=== PATIENT | male | born 1970 | race Caucasian/White ===

== ENCOUNTER 2016-09-16 12:20 | Emergency (ER) | payer OTHER ==
--- NOTE | 2016-09-16 13:24 | DIAGNOSTIC IMAGING REPORT ---
PROCEDURE: XR SHOULDER 2 OR MORE VW-LEFT INDICATION: FALL TECHNIQUE: Three views. COMPARISON: None. FINDINGS: Anterior dislocation of the glenohumeral joint with inferior and medial displacement of the humeral head. No fracture. AC joint is normal. Soft tissues are unremarkable. IMPRESSION: 1. Left shoulder anterior dislocation
--- NOTE | 2016-09-16 15:46 | DIAGNOSTIC IMAGING REPORT ---
PROCEDURE: XR SHOULDER 1 VIEW - LEFT INDICATION: FALL TECHNIQUE: Single view left shoulder COMPARISON: Shoulder films 09/16/16 FINDINGS: Post reduction of the left shoulder, no fracture. IMPRESSION: 1. Post reduction left shoulder, no fracture.
--- NOTE | 2016-09-16 16:12 | ED CLINICAL REPORT ---
Clinical Report - Physicians/Mid Levels [facility] [address] [place] [address] 09/16/2016 12:24 Patient: CARLOS SHARP Time Seen: 12:39. Arrived- By private vehicle. Historian- patient. HISTORY OF PRESENT ILLNESS Chief Complaint: Injury to left shoulder. The injury happened just prior to arrival. Occurred at work. Fell off a ladder and landed on the ground. Patient is experiencing severe pain. No other injury. ( he reports a prior rotator cuff surgery on this left shoulder. Additionally he says that he has dislocated this shoulder twice in the past.). REVIEW OF SYSTEMS The patient has had new onset of pain-related weakness of the left upper arm (severe). No tingling, numbness, chills, fever or sweats. No calf pain, chest pain, cough, pedal edema or abdominal pain. No constipation, diarrhea, nausea, vomiting or urinary problems. All systems otherwise negative, except as recorded above. PAST HISTORY Problems: Dislocated Shoulder. Additional Surgeries: Shoulder Surgery. Medications: None. Allergies: Codeine. PCN. SOCIAL HISTORY Never smoker. History of drug use reports that his former heroin and methamphetamine abuser. He had been on Suboxone but stopped that. He does acknowledge that he continues to use marijuana regularly. Is a recovering addict. ADDITIONAL NOTES The nursing notes have been reviewed. PHYSICAL EXAM Vital Signs: 09/16/2016 12:33 BP: 136/82. HR: 78. RR: 18. O2 saturation: 100%. Temp: 98.1 F. Pain level now: 1010. Have been reviewed. Appearance: Alert. Head: Head atraumatic. Eyes: Pupils equal, round and reactive to light. ENT: Pharynx normal. Neck: Normal inspection. Neck supple. CVS: Normal heart rate and rhythm. Heart sounds normal. Respiratory: No respiratory distress. Breath sounds normal. Abdomen: No visible injury. Soft and nontender. Bowel sounds normal. No organomegaly. No mass. Back: ROM normal. Skin: Skin warm and dry. Normal skin color. Normal skin turgor. Extremities: Left shoulder: moderate deformity. Limited ROM due to pain. Neurovascular intact distally. (Surgical scar noted). Neuro, Vascular and Tendons: Sensation intact. Motor intact. Vascular status intact. Neuro: No motor deficit. No sensory deficit. LABS, X-RAYS, AND EKG Lt Shoulder X-ray: (TECHNIQUE: Three views. COMPARISON: None. FINDINGS: Anterior dislocation of the glenohumeral joint with inferior and medial displacement of the humeral head. No fracture. AC joint is normal. Soft tissues are unremarkable. IMPRESSION: 1. Left shoulder anterior dislocation). The X-rays were interpreted by the radiologist and contemporaneously by me. Post procedure films: (IMPRESSION:). Note - Tests: (Name: Carlos Sharp : 1970 MR#: [id number] Ordering Provider: SEBAS BASURTO Exam(s): CT UPPER EXT W/O CONT - LEFT Date of Exam: 09/16/2016 __ PROCEDURE: CT UPPER EXT W/O CONT - LEFT CLINICAL INDICATION: Left shoulder pain. Follow-up subluxation/reduction. TECHNIQUE: Thin-cut noncontrast axial images with sagittal oblique and coronal oblique reformations. COMPARISON: Comparison made radiographs of the left shoulder earlier today (09/16/2016) FINDINGS: There are moderate degenerative changes of the left glenohumeral joint with small peripheral osteophytes and possible peripheral loose bodies. There are mild degenerative change of the left acromioclavicular joint. There is an old healed fracture of the left proximal humeral shaft. There is a small 6 mm of pocket of subcutaneous emphysema on the left supraclavicular region. IMPRESSION: 1. Moderate degenerative changes of the left glenohumeral joint with possible associated of small loose bodies. 2. Mild degenerative changes of the left acromioclavicular joint. 3. Old healed fracture the left proximal humeral shaft. 4. No evidence of acute fracture. 5. There is a 6 mm isolated pocket of subcutaneous emphysema in the left supraclavicular region. Consider subcutaneous injection site.). PROGRESS AND PROCEDURES Course of Care: Initial evaluation by myself of the patient's left shoulder x-ray was puzzling. On the AP view it did appear that it could be a possible anterior dislocation however on the Y view the humerus appeared to be centered over the glenoid fossa. The radiologist however read this as an anterior dislocation. I made several attempts at reduction of the shoulder with seemingly no success. This was in spite of the use of Valium and a low dose of Dilaudid. I had suggested to the patient that we use conscious sedation however he adamantly refused that. I subsequently consulted Dr. Ballard, orthopedist. He saw the patient in the emergency room and felt that this previously injured shoulder may be subluxing inferiorly. He also suggested that we obtain a CT of the shoulder. he and I reviewed the CT together and he feels that there are fractures to the glenoid fossa some of them may be old and some from today's injury. He suggests that the patient should be paced placed in a sling, given a prescription for Harold and that he may follow up at the orthopedic clinic for further management. Consult obtained from orthopedics. Elio. Case discussed. Consultation performed in ED. Patient/family counseled. Old medical records reviewed. Disposition: Discharged. Condition: stable. CLINICAL IMPRESSION Closed glenoid fossa fracture of the left scapula. INSTRUCTIONS Wear simple sling until released. No driving or operating machinery while taking medication. Sedative medication was given during your visit. Warnings: COMPLICATIONS: Complications from this condition include: possible injury to a nerve, possible injury to a tendon and possible injury to a ligament. Future problems may include loss of function, pain, deformity and poor fracture healing. It is important to follow up with a physician for further evaluation and treatment. GENERAL WARNINGS: Return or contact your physician immediately if your condition worsens or changes unexpectedly, if not improving as expected, or if other problems arise. Prescription Medications: Harold 5 mg / 325 mg tablets: take 1 to 2 orally every 6 hours as needed for pain. Dispense fifteen (15). No refills. Substitution is permissible. Understanding of the discharge instructions verbalized by patient. Follow-up with: [facility], , [address], , [place], [id number] Follow up in two weeks. Call for an appointment. (Electronically signed by Sebas Basurto MD 09/17/2016 22:09)
--- NOTE | 2016-09-16 16:12 | ED NURSING NOTES ---
Clinical Report - Nurses [facility] [address] [place] [address] 09/16/2016 12:24 Patient: GENEVIEVE BUTTS TRIAGE Triage time 12:33. Acuity: LEVEL 3. Chief Complaint: FALL. 12:33 09/16/16. 12:09/16/16. Alert. No acute distress. SEPSIS SCREEN: Sepsis Screen. Negative (no infection suspected/documented). RON COMA SCORE: Ron Coma Scale: 15- eyes open spontaneously (4); best verbal response- oriented x 4 (5); best motor response- obeys commands (6). --12:37 Heath Patel R.N. 12:33 09/16/16. BP: 136/82. HR: 78. RR: 18. O2 saturation: 100% on room air. Temp: 98.1 F (oral). Pain level now: 04/21. --12:37 Heath Patel R.N. Weight: 83.9 kg stated. Height/Length: 71 inches Per Patient. BMI: 25.8. --12:33 Heath Patel R.N. Medications None. --12:35 Heath Patel R.N. Medication/allergy information source: the patient. --12:37 Heath Patel R.N. Allergies PCN. --12:35 Heath Patel R.N. Codeine. --12:35 Heath Patel R.N. History Arrived by private vehicle. Historian: patient. Accompanied by family. Primary physician (NONE). 12:33 09/16/16. This occurred just prior to arrival. No loss of consciousness. No headache. Treatment [employer]: None. Trauma activation: Pre-hospital notification of patient arrival was not received. PAST MEDICAL HX: Tetanus status: up-to-date. Immunizations: up-to-date. SOCIAL HX: Never smoker. History of heavy drug use: marijuana. (FORMER METH/HEROINE USE). No alcohol use. No infectious disease exposure. ABUSE ASSESSMENT: No report of abuse. FALL RISK ASSESSMENT: Fall risk assessment completed. No fall risk identified. NUTRITIONAL RISK ASSESSMENT: The nutritional risk assessment revealed no deficiencies. FUNCTIONAL ASSESSMENT: Functional assessment: no impairments noted. LEARNING NEEDS ASSESSMENT: The learning needs assessment revealed no barriers. SKIN INTEGRITY ASSESSMENT: Skin integrity risk assessment completed. No skin integrity risk identified. --12:37 Heath Patel R.N. ( Denies numbness left hand). --12:37 Heath Patel R.N. PROBLEMS: Dislocated Shoulder. --12:35 Heath Patel R.N. ADDITIONAL SURGERIES: Shoulder Surgery. --15:55 Heath Patel R.N. Assessment 12:33 09/16/16. --12:37 Heath Patel R.N. Interventions 12:33 09/16/16. 12:33 09/16/16. ID and allergy band on patient. To treatment room. --12:37 Heath Patel R.N. PHYSICAL ASSESSMENT 12:36 09/16/16. To room via wheelchair. GENERAL / NEURO / PSYCH: Alert. Oriented X 4. Appears in pain. RESPIRATORY: Respirations not labored. CVS: Capillary refill less than 2 seconds. EXTREMITIES: Neuro-vascular status intact to the extremity. Left shoulder: tenderness and deformity. SKIN: Skin is warm and dry. --12:36 Heath Patel R.N. NURSING PROGRESS NOTES 12:36 09/16/16. The plan of care for this patient has been created. Cold pack applied. Patient gowned. Reassurance given. Two patient identifiers checked. Call light placed in reach. Side rails up x 2. Bed placed in lowest position. Brakes of bed on. Brakes of chair on. --12:36 Heath Patel R.N. 12:36 09/16/16. Patient ready for evaluation- chart flagged and notification provided. --12:36 Heath Patel R.N. 12:59 09/16/16. ( x-ray completed). --12:59 Heath Patel R.N. 12:59 09/16/16. ( Pt refusing IV, would rather have no sedation for reduction, MD aware, pt would like to have pain meds instead for sedation, MD garcia, toradol ordered). --12:59 Heath Patel R.N. 13:00 09/16/2016 Toradol (Ketorolac Tromethamine) IM 60 mg given. Given in the right deltoid. Allergies verified and confirmed 5 rights. --13:00 Heath Patel R.N. 13:00 09/16/16. BP: 136/82. HR: 60. RR: 18. O2 saturation: 100%. O2 started via nasal cannula at 2 liters/minute. End tidal CO2: 32 mmHg. --13:00 Heath Patel R.N. 13:09/16/16. Cardiac rhythm: sinus bradycardia. --13:00 Heath Patel R.N. 13:09/16/16. Monitoring of patient in place. Pulse oximeter applied. End tidal CO2 monitor applied. ekg monitor tech applied. NIBP monitor applied. --13:01 Heath Patel R.N. 14:09/16/2016 Site #1 started via IV in the right upper arm with an 22g angiocath, with aseptic technique and good blood return; one attempt. --14:07 Heath Patel R.N. 14:14 09/16/2016 Valium (Diazepam) IVP 5 mg given over 2 minute(s) via site #1. Allergies verified, confirmed 5 rights and sedative warning given to the patient. IV patency established. IV site checked: no pain, redness, or swelling. IV flushed thoroughly pre- and post-medication administration. IVP given by RN. --14:14 Heath Patel R.N. 14:14 09/16/2016 Started bag #1 1000 mL IV Fluids IV NS (Saline); at 1000 mL/hr over 1 hour(s) via site #1. Allergies verified and confirmed 5 rights. IV patency established. IV site checked: no pain, redness, or swelling. IV flushed thoroughly pre- and post-medication administration. Completed per protocol. --14:14 Heath Patel R.N. 14:15 09/16/16. BP: 115/72. HR: 50. RR: 12. O2 saturation: 100% on nasal cannula at 2 liters/minute. --14:15 Heath Patel R.N. Cardiac rhythm: sinus bradycardia. --14:15 Heath Patel R.N. 14:15 09/16/16. --14:15 Heath Patel R.N. 14:15 09/16/16. End tidal CO2: 32 mmHg. --14:15 Heath Patel R.N. 14:34 09/16/2016 Valium (Diazepam) IVP 5 mg given over 2 minute(s) via site #1. Allergies verified, confirmed 5 rights and sedative warning given to the patient. IV patency established. IV site checked: no pain, redness, or swelling. IV flushed thoroughly pre- and post-medication administration. IVP given by RN. --14:34 Heath Patel R.N. 14:33 09/16/16. BP: 114/80. HR: 61. RR: 14. O2 saturation: 98% on nasal cannula at 2 liters/minute. End tidal CO2: 37 mmHg. --14:35 Heath Patel R.N. 14:35 09/16/16. --14:35 Heath Patel R.N. 14:35 09/16/16. Cardiac rhythm: normal sinus rhythm. --14:35 Heath Patel R.N. 14:41 09/16/2016 Dilaudid (HYDROmorphone HCl PF) IVP 0.5 mg given over 2 minute(s) via site #1. Allergies verified, confirmed 5 rights and sedative warning given to the patient. IV patency established. IV site checked: no pain, redness, or swelling. IV flushed thoroughly pre- and post-medication administration. IVP given by RN. --14:41 Heath Patel R.N. 14:41 09/16/16. Cardiac rhythm: sinus bradycardia. --14:41 Heath Patel R.N. 14:41 09/16/16. BP: 112/79. HR: 62. RR: 16. O2 saturation: 100% on nasal cannula at 2 liters/minute. End tidal CO2: 36 mmHg. --14:41 Heath Patel R.N. 14:41 09/16/16. ( MD unable to reduce left shoulder). --14:41 Heath Patel R.N. 14:50 09/16/16. ( unable to reduce shoulder, MD to call orthopedic MD for consult, pt refusing conscious sedation). --14:50 Heath Patel R.N. 15:40 09/16/16. ( Ortho MD at bedside. New order for CT scan). --15:40 Heath Patel R.N. 15:40 09/16/16. Patient transported to NV by stretcher with tech. --15:40 Heath Patel R.N. 15:43 09/16/2016 IV Fluids IV NS Discontinued: bag #1 infused upon discharge. Total amount infused: 1000 mL. IV patency established. IV site checked: no pain, redness, or swelling. IV flushed thoroughly. --16:08 Heath Patel R.N. 15:55 09/16/16. Patient returned from NV by stretcher with tech. --15:55 Heath Patel R.N. 15:55 09/16/16. ( Ortho MD at bedside talking with patient). --15:55 Heath Patel R.N. DISPOSITION / DISCHARGE 16:06 09/16/2016 Site #1 removed upon discharge. Catheter intact. --16:06 Heath Patel R.N. 16:08 09/16/16. Condition at departure: improved. The goals identified in the patient's plan of care were met. No learning barriers present. Discharge instructions provided and reviewed with the patient. Reviewed warnings. Reviewed medication(s). Treatments reviewed. Reviewed referral to an orthopedic surgeon for followup. The patient was discharged by the physician. He was discharged home. He left the Emergency Department ambulatory. FALL RISK ASSESSMENT: Fall risk assessment completed. No fall risk identified. --16:08 Heath Patel R.N. 16:06 09/16/16. BP: 117/72. HR: 72. RR: 14. O2 saturation: 98% on room air. Temp: 98.1 F (oral). --16:08 Heath Patel R.N. 16:21 09/16/16. Departure time: 16:19. ( Pt given clarification by Dr. Basurto that he received a narcotic and benzodiazepine via prescription pad to provide to patients employer.). --16:21 Heath Patel R.N. 16:21 09/16/16. Departure time: 16:21. --16:21 Heath Patel R.N. Locked/Released at 09/16/2016 16:34 by Heath Patel R.N.
--- NOTE | 2016-09-16 16:12 | ED CLINICAL REPORT ---
Clinical Report - Physicians/Mid Levels [facility] [address] [place] [address] 09/16/2016 12:24 Patient: CARLOS SHARP Time Seen: 12:39. Arrived- By private vehicle. Historian- patient. HISTORY OF PRESENT ILLNESS Chief Complaint: Injury to left shoulder. The injury happened just prior to arrival. Occurred at work. Fell off a ladder and landed on the ground. Patient is experiencing severe pain. No other injury. ( he reports a prior rotator cuff surgery on this left shoulder. Additionally he says that he has dislocated this shoulder twice in the past.). REVIEW OF SYSTEMS The patient has had new onset of pain-related weakness of the left upper arm (severe). No tingling, numbness, chills, fever or sweats. No calf pain, chest pain, cough, pedal edema or abdominal pain. No constipation, diarrhea, nausea, vomiting or urinary problems. All systems otherwise negative, except as recorded above. PAST HISTORY Problems: Dislocated Shoulder. Additional Surgeries: Shoulder Surgery. Medications: None. Allergies: Codeine. PCN. SOCIAL HISTORY Never smoker. History of drug use reports that his former heroin and methamphetamine abuser. He had been on Suboxone but stopped that. He does acknowledge that he continues to use marijuana regularly. Is a recovering addict. ADDITIONAL NOTES The nursing notes have been reviewed. PHYSICAL EXAM Vital Signs: 09/16/2016 12:33 BP: 136/82. HR: 78. RR: 18. O2 saturation: 100%. Temp: 98.1 F. Pain level now: 1010. Have been reviewed. Appearance: Alert. Head: Head atraumatic. Eyes: Pupils equal, round and reactive to light. ENT: Pharynx normal. Neck: Normal inspection. Neck supple. CVS: Normal heart rate and rhythm. Heart sounds normal. Respiratory: No respiratory distress. Breath sounds normal. Abdomen: No visible injury. Soft and nontender. Bowel sounds normal. No organomegaly. No mass. Back: ROM normal. Skin: Skin warm and dry. Normal skin color. Normal skin turgor. Extremities: Left shoulder: moderate deformity. Limited ROM due to pain. Neurovascular intact distally. (Surgical scar noted). Neuro, Vascular and Tendons: Sensation intact. Motor intact. Vascular status intact. Neuro: No motor deficit. No sensory deficit. LABS, X-RAYS, AND EKG Lt Shoulder X-ray: (TECHNIQUE: Three views. COMPARISON: None. FINDINGS: Anterior dislocation of the glenohumeral joint with inferior and medial displacement of the humeral head. No fracture. AC joint is normal. Soft tissues are unremarkable. IMPRESSION: 1. Left shoulder anterior dislocation). The X-rays were interpreted by the radiologist and contemporaneously by me. Post procedure films: (IMPRESSION:). Note - Tests: (Name: Carlos Sharp : 1970 MR#: [id number] Ordering Provider: SEBAS BASURTO Exam(s): CT UPPER EXT W/O CONT - LEFT Date of Exam: 09/16/2016 __ PROCEDURE: CT UPPER EXT W/O CONT - LEFT CLINICAL INDICATION: Left shoulder pain. Follow-up subluxation/reduction. TECHNIQUE: Thin-cut noncontrast axial images with sagittal oblique and coronal oblique reformations. COMPARISON: Comparison made radiographs of the left shoulder earlier today (09/16/2016) FINDINGS: There are moderate degenerative changes of the left glenohumeral joint with small peripheral osteophytes and possible peripheral loose bodies. There are mild degenerative change of the left acromioclavicular joint. There is an old healed fracture of the left proximal humeral shaft. There is a small 6 mm of pocket of subcutaneous emphysema on the left supraclavicular region. IMPRESSION: 1. Moderate degenerative changes of the left glenohumeral joint with possible associated of small loose bodies. 2. Mild degenerative changes of the left acromioclavicular joint. 3. Old healed fracture the left proximal humeral shaft. 4. No evidence of acute fracture. 5. There is a 6 mm isolated pocket of subcutaneous emphysema in the left supraclavicular region. Consider subcutaneous injection site.). PROGRESS AND PROCEDURES Course of Care: Initial evaluation by myself of the patient's left shoulder x-ray was puzzling. On the AP view it did appear that it could be a possible anterior dislocation however on the Y view the humerus appeared to be centered over the glenoid fossa. The radiologist however read this as an anterior dislocation. I made several attempts at reduction of the shoulder with seemingly no success. This was in spite of the use of Valium and a low dose of Dilaudid. I had suggested to the patient that we use conscious sedation however he adamantly refused that. I subsequently consulted Dr. Ballard, orthopedist. He saw the patient in the emergency room and felt that this previously injured shoulder may be subluxing inferiorly. He also suggested that we obtain a CT of the shoulder. he and I reviewed the CT together and he feels that there are fractures to the glenoid fossa some of them may be old and some from today's injury. He suggests that the patient should be paced placed in a sling, given a prescription for [place] and that he may follow up at the orthopedic clinic for further management. Consult obtained from orthopedics. Elio. Case discussed. Consultation performed in ED. Patient/family counseled. Old medical records reviewed. Disposition: Discharged. Condition: stable. CLINICAL IMPRESSION Closed glenoid fossa fracture of the left scapula. INSTRUCTIONS Wear simple sling until released. No driving or operating machinery while taking medication. Sedative medication was given during your visit. Warnings: COMPLICATIONS: Complications from this condition include: possible injury to a nerve, possible injury to a tendon and possible injury to a ligament. Future problems may include loss of function, pain, deformity and poor fracture healing. It is important to follow up with a physician for further evaluation and treatment. GENERAL WARNINGS: Return or contact your physician immediately if your condition worsens or changes unexpectedly, if not improving as expected, or if other problems arise. Prescription Medications: [place] 5 mg / 325 mg tablets: take 1 to 2 orally every 6 hours as needed for pain. Dispense fifteen (15). No refills. Substitution is permissible. Understanding of the discharge instructions verbalized by patient. Follow-up with: [facility], , [address], , [place], [address] Follow up in two weeks. Call for an appointment. (Electronically signed by Sebas Basurto MD 09/17/2016 22:09)
--- NOTE | 2016-09-16 16:12 | ED ORDER SUMMARY ---
..... Patient: GENEVIEVE BUTTS OrderSheet [facility] VisitID: [id number] [address] [place] [address] 46y, M Registration Date/Time: 09/16/2016 ORDER SHEET Weight: 83.9 kg (stated) Allergies: PCN, Codeine GENERAL ORDERS: Shoulder 2V or more Left Urgent (12:38 09/16/2016 JBoardley R.N. per protocol) (Ack 12:45 Chay) (12:59 JBoardley R.N.) Shoulder 1V Left Urgent (15:24 09/16/2016 JBoardley R.N. verbal order read back to Elyssa KOTHARI) (15:39 JBoardley R.N.) CT Upp Ext wo Cont Left (Shoulder) Urgent (15:35 09/16/2016 Elyssa KOTHARI) (Ack 15:44 Chay) (16:07 JBoardley R.N.) MEDICATION ORDERS: Toradol IM 60 mg (NOW) (13:00 09/16/2016 JBoardley R.N. per protocol) (13:00 JBoardley R.N.) IV FLUIDS: IV Saline Lock (14:07 09/16/2016 JBoardley R.N. per protocol) (14:07 JBoardley R.N.) Valium IV 5 mg (HIGH ALERT MEDICATION, NOW) (14:09 09/16/2016 Elyssa KOTHARI) (14:14 JBoardley R.N.) IV NS : initial bolus 500 mL (1000 mL/hr), then 125 mL/hr for 4h (NOW); Urgent (14:09 09/16/2016 Elyssa KOTHARI) (14:14 JBoardley R.N.) Valium IV 5 mg (HIGH ALERT MEDICATION, NOW) (14:34 09/16/2016 JBoardley R.N. verbal order read back to Elyssa KOTHARI) (14:34 JBoardley R.N.) Dilaudid IV 0.5 mg (HIGH ALERT MEDICATION, NOW) (14:40 09/16/2016 JBoardley R.N. verbal order read back to Elyssa KOTHARI) (14:41 Herman Burch) ORDER SHEET NOTES: [Electronically signed by Heath Patel R.N. (16:34 09/16/2016)] [Electronically signed by Sebas Basurto MD (22:09 09/17/2016)] [Electronically locked/signed by Heath Patel R.N. (16:34 09/16/2016)]
--- NOTE | 2016-09-16 16:12 | ED ORDER SUMMARY ---
..... Patient: GENEVIEVE BUTTS OrderSheet Formerly [facility] VisitID: [id number] [address] [place] [address] 46y, M Registration Date/Time: 09/16/2016 ORDER SHEET Weight: 83.9 kg (stated) Allergies: PCN, Codeine GENERAL ORDERS: Shoulder 2V or more Left Urgent (12:38 09/16/2016 JBoardley R.N. per protocol) (Ack 12:45 Chay) (12:59 JBoardley R.N.) Shoulder 1V Left Urgent (15:24 09/16/2016 JBoardley R.N. verbal order read back to Elyssa KOTHARI) (15:39 JBoardley R.N.) CT Upp Ext wo Cont Left (Shoulder) Urgent (15:35 09/16/2016 Elyssa KOTHARI) (Ack 15:44 Chay) (16:07 JBoardley R.N.) MEDICATION ORDERS: Toradol IM 60 mg (NOW) (13:00 09/16/2016 JBoardley R.N. per protocol) (13:00 JBoardley R.N.) IV FLUIDS: IV Saline Lock (14:07 09/16/2016 JBoardley R.N. per protocol) (14:07 JBoardley R.N.) Valium IV 5 mg (HIGH ALERT MEDICATION, NOW) (14:09 09/16/2016 Elyssa KOTHARI) (14:14 JBoardley R.N.) IV NS : initial bolus 500 mL (1000 mL/hr), then 125 mL/hr for 4h (NOW); Urgent (14:09 09/16/2016 Elyssa KOTHARI) (14:14 JBoardley R.N.) Valium IV 5 mg (HIGH ALERT MEDICATION, NOW) (14:34 09/16/2016 JBoardley R.N. verbal order read back to Elyssa KOTHARI) (14:34 JBoardley R.N.) Dilaudid IV 0.5 mg (HIGH ALERT MEDICATION, NOW) (14:40 09/16/2016 JBoardley R.N. verbal order read back to Elyssa KOTHARI) (14:41 Herman Burch) ORDER SHEET NOTES: [Electronically signed by Heath Patel R.N. (16:34 09/16/2016)] [Electronically signed by Sebas Basurto MD (22:09 09/17/2016)] [Electronically locked/signed by Heath Patel R.N. (16:34 09/16/2016)]
--- NOTE | 2016-09-16 17:08 | DIAGNOSTIC IMAGING REPORT ---
PROCEDURE: CT UPPER EXT W/O CONT - LEFT CLINICAL INDICATION: Left shoulder pain. Follow-up subluxation/reduction. TECHNIQUE: Thin-cut noncontrast axial images with sagittal oblique and coronal oblique reformations. COMPARISON: Comparison made radiographs of the left shoulder earlier today (09/16/2016) FINDINGS: There are moderate degenerative changes of the left glenohumeral joint with small peripheral osteophytes and possible peripheral loose bodies. There are mild degenerative change of the left acromioclavicular joint. There is an old healed fracture of the left proximal humeral shaft. There is a small 6 mm of pocket of subcutaneous emphysema on the left supraclavicular region. IMPRESSION: 1. Moderate degenerative changes of the left glenohumeral joint with possible associated of small loose bodies. 2. Mild degenerative changes of the left acromioclavicular joint. 3. Old healed fracture the left proximal humeral shaft. 4. No evidence of acute fracture. 5. There is a 6 mm isolated pocket of subcutaneous emphysema in the left supraclavicular region. Consider subcutaneous injection site. 6. Findings discussed with Dr. Basurto. All CT scans at this facility use dose modulation, iterative reconstruction, and/or weight-based dosing when appropriate to reduce radiation dose to as low as reasonably achievable.
--- NOTE | 2016-09-18 02:39 | ED MED RECONCILIATION SUMMARY ---
Patient: GENEVIEVE BUTTS Medication Reconciliation Report [facility] VisitID: [id number] [address] [place] [address] 46y, M Registration Date/Time: 09/16/2016 Weight: 83.9 kg Height/Length: 71 in. BMI: 25.8 ALLERGIES: Codeine, PCN The patient's Home Medications are listed below: NONE. The source(s) of the original Home Medication information: patient The following Medications were given to the patient in the Emergency Department: Toradol [IM] IM 60 mg, administered: 09/16/2016 1:00:00 PM Valium [IVP] IVP 5 mg, administered: 09/16/2016 2:14:00 PM IV NS IV Fluids bolus 0, then 1000 mL/hr, administered: 09/16/2016 2:14:00 PM Valium [IVP] IVP 5 mg, administered: 09/16/2016 2:34:00 PM Dilaudid [IVP] IVP 0.5 mg, administered: 09/16/2016 2:41:00 PM The following Medications were prescribed to the patient: [place] 5 mg / 325 mg tablets: take 1 to 2 orally every 6 hours as needed for pain. Dispense fifteen (15). No refills. Substitution is permissible. -- Sebas Basurto MD
--- NOTE | 2016-09-18 02:39 | ED DISCHARGE INSTRUCTIONS ---
Patient: GENEVIEVE BUTTS General Instructions [facility] VisitID: [id number] [address] [place] [address] 46y, M Registration Date/Time: 09/16/2016 Closed glenoid fossa fracture of the left scapula. INSTRUCTIONS Wear simple sling until released. No driving or operating machinery while taking medication. Sedative medication was given during your visit. Warnings: COMPLICATIONS: Complications from this condition include: possible injury to a nerve, possible injury to a tendon and possible injury to a ligament. Future problems may include loss of function, pain, deformity and poor fracture healing. It is important to follow up with a physician for further evaluation and treatment. GENERAL WARNINGS: Return or contact your physician immediately if your condition worsens or changes unexpectedly, if not improving as expected, or if other problems arise. Prescription Medications: [place] 5 mg / 325 mg tablets: take 1 to 2 orally every 6 hours as needed for pain. Dispense fifteen (15). No refills. Substitution is permissible. Understanding of the discharge instructions verbalized by patient. Follow-up with: [facility], , [address], [place], [id number] Follow up in two weeks. Call for an appointment. ADDITIONAL INFORMATION Shoulder Fracture [Shoulder Immobilizer] You have a break (fracture) of the shoulder. This may be a small crack in the bone. Or it may be a major break with the broken parts pushed out of position. If there is only a crack in the bone and no bone fragments are out of place, a shoulder fracture is usually treated with a shoulder immobilizer. This is a special type of sling. (Casts are not used for this type of fracture.) Healing of the bone usually occurs in 4-6 weeks. More serious injuries may require surgery to put the bones back into the correct position for healing. Home Care: Leave the shoulder immobilizer in place. This will support the injured arm at your side. This is the best position for bone healing. The shoulder immobilizer is adjustable. If it becomes loose, adjust it so that your forearm is horizontal (level with the ground). Your hand should be level with the elbow. Apply an ice pack (ice cubes in a plastic bag, wrapped in a towel) over the injured area for 20 minutes every 1-2 hours the first day. Continue with ice packs 3-4 times a day for the next two days, then as needed for the relief of pain and swelling. You may use acetaminophen (Tylenol) or ibuprofen (Motrin, Advil) to control pain, unless another pain medicine was prescribed. (NOTE : If you have chronic liver or kidney disease or ever had a stomach ulcer or GI bleeding, talk with your doctor before using these medicines.) Do not remove the sling before your next exam unless you were instructed to do so. Follow Up with your doctor in one week, or as advised by our staff, to be sure the bone is healing properly. A shoulder joint will become stiff if left in a sling for too long. Ask your doctor when it is safe to begin [id number] exercises. Get Prompt Medical Attention if any of the following occur: Fingers become swollen, cold, blue, numb or tingly Large amount of swelling or bruising of the shoulder or upper arm Increasing shoulder pain or arm swelling Sling A sling is designed to support your arm in a position of rest. It is used for injuries of the hand, forearm, upper arm, and shoulder. A shoulder that is immobilized too long can become stiff and lose range of motion. Follow up with your doctor as advised and do not use the sling longer than directed. Home Use: Leave the sling in place as long as directed by your doctor. Unless told otherwise, you may remove it when bathing, dressing, and when you go to sleep. The sling is adjustable. If it becomes loose, adjust it so that your forearm is horizontal (level with the ground). Your hand should be level with the elbow. Hydrocodone Bitartrate, Acetaminophen Oral tablet What is this medicine? ACETAMINOPHEN; HYDROCODONE (a set a MARIEL luis fen; margarita droe KOE done) is a pain reliever. It is used to treat mild to moderate pain. How should I use this medicine? Take this medicine by mouth. Swallow it with a full glass of water. Follow the directions on the prescription label. If the medicine upsets your stomach, take the medicine with food or milk. Do not take more than you are told to take. Talk to your filtration supervisor regarding the use of this medicine in children. This medicine is not approved for use in children. What side effects may I notice from receiving this medicine? Side effects that you should report to your doctor or health health care administrator as soon as possible: allergic reactions like skin rash, itching or hives, swelling of the face, lips, or tongue breathing problems confusion feeling faint or lightheaded, falls stomach pain yellowing of the eyes or skin Side effects that usually do not require medical attention (report to your doctor or health health care administrator if they continue or are bothersome): nausea, vomiting stomach upset What may interact with this medicine? alcohol antihistamines isoniazid medicines for depression, anxiety, or psychotic disturbances medicines for sleep muscle relaxants naltrexone narcotic medicines (opiates) for pain phenobarbital ritonavir tramadol What if I miss a dose? If you miss a dose, take it as soon as you can. If it is almost time for your next dose, take only that dose. Do not take double or extra doses. Where should I keep my medicine? Keep out of the reach of children. This medicine can be abused. Keep your medicine in a safe place to protect it from theft. Do not share this medicine with anyone. Selling or giving away this medicine is dangerous and against the law. Store at room temperature between 15 and 30 degrees C (59 and 86 degrees F). Protect from light. Keep container tightly closed. Throw away any unused medicine after the expiration date. Discard unused medicine and used packaging carefully. Pets and children can be harmed if they find used or lost packages. What should I tell my health care provider before I take this medicine? They need to know if you have any of these conditions: brain tumor Crohn's disease, inflammatory bowel disease, or ulcerative colitis drink more than 3 alcohol-containing drinks per day drug abuse or addiction head injury heart or circulation problems kidney disease or problems going to the bathroom liver disease lung disease, asthma, or breathing problems an unusual or allergic reaction to acetaminophen, hydrocodone, other opioid analgesics, other medicines, foods, dyes, or preservatives or trying to get breast-feeding What should I watch for while using this medicine? Tell your doctor or health health care administrator if your pain does not go away, if it gets worse, or if you have new or a different type of pain. You may develop tolerance to the medicine. Tolerance means that you will need a higher dose of the medicine for pain relief. Tolerance is normal and is expected if you take the medicine for a long time. Do not suddenly stop taking your medicine because you may develop a severe reaction. Your body becomes used to the medicine. This does NOT mean you are addicted. Addiction is a behavior related to getting and using a drug for a non-medical reason. If you have pain, you have a medical reason to take pain medicine. Your doctor will tell you how much medicine to take. If your doctor wants you to stop the medicine, the dose will be slowly lowered over time to avoid any side effects. You may get drowsy or dizzy when you first start taking the medicine or change doses. Do not drive, use machinery, or do anything that may be dangerous until you know how the medicine affects you. Stand or sit up slowly. There are different types of narcotic medicines (opiates) for pain. If you take more than one type at the same time, you may have more side effects. Give your health care provider a list of all medicines you use. Your doctor will tell you how much medicine to take. Do not take more medicine than directed. Call emergency for help if you have problems breathing. The medicine will cause constipation. Try to have a bowel movement at least every 2 to 3 days. If you do not have a bowel movement for 3 days, call your doctor or health health care administrator. Too much acetaminophen can be very dangerous. Do not take Tylenol (acetaminophen) or medicines that contain acetaminophen with this medicine. Many non-prescription medicines contain acetaminophen. Always read the labels carefully. You have been given the following additional information: Fracture, Shoulder Sling Hydrocodone Bitartrate, Acetaminophen Oral tablet No driving or operating machinery while taking medication. Sedative medication was given during your visit. (Electronically signed by Sebas Basurto MD 09/17/2016 22:09)
--- NOTE | 2016-09-18 02:39 | ED DISCHARGE INSTRUCTIONS ---
Patient: GENEVIEVE BUTTS General Instructions [facility] VisitID: [id number] [address] [place] [address] 46y, M Registration Date/Time: 09/16/2016 Closed glenoid fossa fracture of the left scapula. INSTRUCTIONS Wear simple sling until released. No driving or operating machinery while taking medication. Sedative medication was given during your visit. Warnings: COMPLICATIONS: Complications from this condition include: possible injury to a nerve, possible injury to a tendon and possible injury to a ligament. Future problems may include loss of function, pain, deformity and poor fracture healing. It is important to follow up with a physician for further evaluation and treatment. GENERAL WARNINGS: Return or contact your physician immediately if your condition worsens or changes unexpectedly, if not improving as expected, or if other problems arise. Prescription Medications: [place] 5 mg / 325 mg tablets: take 1 to 2 orally every 6 hours as needed for pain. Dispense fifteen (15). No refills. Substitution is permissible. Understanding of the discharge instructions verbalized by patient. Follow-up with: [facility], , [address], [place], [id number] Follow up in two weeks. Call for an appointment. ADDITIONAL INFORMATION Shoulder Fracture [Shoulder Immobilizer] You have a break (fracture) of the shoulder. This may be a small crack in the bone. Or it may be a major break with the broken parts pushed out of position. If there is only a crack in the bone and no bone fragments are out of place, a shoulder fracture is usually treated with a shoulder immobilizer. This is a special type of sling. (Casts are not used for this type of fracture.) Healing of the bone usually occurs in 4-6 weeks. More serious injuries may require surgery to put the bones back into the correct position for healing. Home Care: Leave the shoulder immobilizer in place. This will support the injured arm at your side. This is the best position for bone healing. The shoulder immobilizer is adjustable. If it becomes loose, adjust it so that your forearm is horizontal (level with the ground). Your hand should be level with the elbow. Apply an ice pack (ice cubes in a plastic bag, wrapped in a towel) over the injured area for 20 minutes every 1-2 hours the first day. Continue with ice packs 3-4 times a day for the next two days, then as needed for the relief of pain and swelling. You may use acetaminophen (Tylenol) or ibuprofen (Motrin, Advil) to control pain, unless another pain medicine was prescribed. (NOTE : If you have chronic liver or kidney disease or ever had a stomach ulcer or GI bleeding, talk with your doctor before using these medicines.) Do not remove the sling before your next exam unless you were instructed to do so. Follow Up with your doctor in one week, or as advised by our staff, to be sure the bone is healing properly. A shoulder joint will become stiff if left in a sling for too long. Ask your doctor when it is safe to begin [id number] exercises. Get Prompt Medical Attention if any of the following occur: Fingers become swollen, cold, blue, numb or tingly Large amount of swelling or bruising of the shoulder or upper arm Increasing shoulder pain or arm swelling Sling A sling is designed to support your arm in a position of rest. It is used for injuries of the hand, forearm, upper arm, and shoulder. A shoulder that is immobilized too long can become stiff and lose range of motion. Follow up with your doctor as advised and do not use the sling longer than directed. Home Use: Leave the sling in place as long as directed by your doctor. Unless told otherwise, you may remove it when bathing, dressing, and when you go to sleep. The sling is adjustable. If it becomes loose, adjust it so that your forearm is horizontal (level with the ground). Your hand should be level with the elbow. Hydrocodone Bitartrate, Acetaminophen Oral tablet What is this medicine? ACETAMINOPHEN; HYDROCODONE (a set a MARIEL luis fen; margarita droe KOE done) is a pain reliever. It is used to treat mild to moderate pain. How should I use this medicine? Take this medicine by mouth. Swallow it with a full glass of water. Follow the directions on the prescription label. If the medicine upsets your stomach, take the medicine with food or milk. Do not take more than you are told to take. Talk to your partition assembler regarding the use of this medicine in children. This medicine is not approved for use in children. What side effects may I notice from receiving this medicine? Side effects that you should report to your doctor or health nanny caregiver as soon as possible: allergic reactions like skin rash, itching or hives, swelling of the face, lips, or tongue breathing problems confusion feeling faint or lightheaded, falls stomach pain yellowing of the eyes or skin Side effects that usually do not require medical attention (report to your doctor or health nanny caregiver if they continue or are bothersome): nausea, vomiting stomach upset What may interact with this medicine? alcohol antihistamines isoniazid medicines for depression, anxiety, or psychotic disturbances medicines for sleep muscle relaxants naltrexone narcotic medicines (opiates) for pain phenobarbital ritonavir tramadol What if I miss a dose? If you miss a dose, take it as soon as you can. If it is almost time for your next dose, take only that dose. Do not take double or extra doses. Where should I keep my medicine? Keep out of the reach of children. This medicine can be abused. Keep your medicine in a safe place to protect it from theft. Do not share this medicine with anyone. Selling or giving away this medicine is dangerous and against the law. Store at room temperature between 15 and 30 degrees C (59 and 86 degrees F). Protect from light. Keep container tightly closed. Throw away any unused medicine after the expiration date. Discard unused medicine and used packaging carefully. Pets and children can be harmed if they find used or lost packages. What should I tell my health care provider before I take this medicine? They need to know if you have any of these conditions: brain tumor Crohn's disease, inflammatory bowel disease, or ulcerative colitis drink more than 3 alcohol-containing drinks per day drug abuse or addiction head injury heart or circulation problems kidney disease or problems going to the bathroom liver disease lung disease, asthma, or breathing problems an unusual or allergic reaction to acetaminophen, hydrocodone, other opioid analgesics, other medicines, foods, dyes, or preservatives or trying to get breast-feeding What should I watch for while using this medicine? Tell your doctor or health nanny caregiver if your pain does not go away, if it gets worse, or if you have new or a different type of pain. You may develop tolerance to the medicine. Tolerance means that you will need a higher dose of the medicine for pain relief. Tolerance is normal and is expected if you take the medicine for a long time. Do not suddenly stop taking your medicine because you may develop a severe reaction. Your body becomes used to the medicine. This does NOT mean you are addicted. Addiction is a behavior related to getting and using a drug for a non-medical reason. If you have pain, you have a medical reason to take pain medicine. Your doctor will tell you how much medicine to take. If your doctor wants you to stop the medicine, the dose will be slowly lowered over time to avoid any side effects. You may get drowsy or dizzy when you first start taking the medicine or change doses. Do not drive, use machinery, or do anything that may be dangerous until you know how the medicine affects you. Stand or sit up slowly. There are different types of narcotic medicines (opiates) for pain. If you take more than one type at the same time, you may have more side effects. Give your health care provider a list of all medicines you use. Your doctor will tell you how much medicine to take. Do not take more medicine than directed. Call emergency for help if you have problems breathing. The medicine will cause constipation. Try to have a bowel movement at least every 2 to 3 days. If you do not have a bowel movement for 3 days, call your doctor or health nanny caregiver. Too much acetaminophen can be very dangerous. Do not take Tylenol (acetaminophen) or medicines that contain acetaminophen with this medicine. Many non-prescription medicines contain acetaminophen. Always read the labels carefully. You have been given the following additional information: Fracture, Shoulder Sling Hydrocodone Bitartrate, Acetaminophen Oral tablet No driving or operating machinery while taking medication. Sedative medication was given during your visit. (Electronically signed by Sebas Basurto MD 09/17/2016 22:09)
--- NOTE | 2016-09-18 02:39 | ED MAR SUMMARY ---
..... Medication Administration Record [facility] [address] [place] [address] Patient: GENEVIEVE BUTTS Visit ID: [id number] 46y, M Weight: 83.9 kg Height/Length: 71 in BMI: 25.8 ALLERGIES: Codeine, PCN Given 13:00 09/16/2016 Heath Patel R.N. Medication Administered: TORADOL [IM] (KETOROLAC TROMETHAMINE), Dose: 60 mg IM. Medication Ordered: Toradol IM 60 mg (NOW). Given 14:14 09/16/2016 Heath Patel R.N. Medication Administered: VALIUM [IVP] (DIAZEPAM), Dose: 5 mg IVP over 2 minute(s), Site: #1 right upper arm. Medication Ordered: Valium IV 5 mg (HIGH ALERT MEDICATION, NOW). Start 14:14 09/16/2016 Heath Patel R.N., Stop 15:43 09/16/2016 Heath Patel R.N. Medication Administered: IV NS (SALINE), Dose: IV Fluids over 1 hour(s), Rate: 1000 mL/hr, Dispensed: 1000 mL bag, Site: #1 right upper arm. Medication Ordered: IV NS : initial bolus 500 mL (1000 mL/hr), then 125 mL/hr for 4h (NOW); Urgent. Given 14:34 09/16/2016 Heath Patel R.N. Medication Administered: VALIUM [IVP] (DIAZEPAM), Dose: 5 mg IVP over 2 minute(s), Site: #1 right upper arm. Medication Ordered: Valium IV 5 mg (HIGH ALERT MEDICATION, NOW). Given 14:41 09/16/2016 Heath Patel R.N. Medication Administered: DILAUDID [IVP] (HYDROMORPHONE HCL PF), Dose: 0.5 mg IVP over 2 minute(s), Site: #1 right upper arm. Medication Ordered: Dilaudid IV 0.5 mg (HIGH ALERT MEDICATION, NOW).
--- NOTE | 2016-09-18 02:39 | ED MAR SUMMARY ---
..... Medication Administration Record [facility] [address] [place] [address] Patient: GENEVIEVE BUTTS Visit ID: [id number] 46y, M Weight: 83.9 kg Height/Length: 71 in BMI: 25.8 ALLERGIES: Codeine, PCN Given 13:00 09/16/2016 Heath Patel R.N. Medication Administered: TORADOL [IM] (KETOROLAC TROMETHAMINE), Dose: 60 mg IM. Medication Ordered: Toradol IM 60 mg (NOW). Given 14:14 09/16/2016 Heath Patel R.N. Medication Administered: VALIUM [IVP] (DIAZEPAM), Dose: 5 mg IVP over 2 minute(s), Site: #1 right upper arm. Medication Ordered: Valium IV 5 mg (HIGH ALERT MEDICATION, NOW). Start 14:14 09/16/2016 Heath Patel R.N., Stop 15:43 09/16/2016 Heath Patel R.N. Medication Administered: IV NS (SALINE), Dose: IV Fluids over 1 hour(s), Rate: 1000 mL/hr, Dispensed: 1000 mL bag, Site: #1 right upper arm. Medication Ordered: IV NS : initial bolus 500 mL (1000 mL/hr), then 125 mL/hr for 4h (NOW); Urgent. Given 14:34 09/16/2016 Heath Patel R.N. Medication Administered: VALIUM [IVP] (DIAZEPAM), Dose: 5 mg IVP over 2 minute(s), Site: #1 right upper arm. Medication Ordered: Valium IV 5 mg (HIGH ALERT MEDICATION, NOW). Given 14:41 09/16/2016 Heath Patel R.N. Medication Administered: DILAUDID [IVP] (HYDROMORPHONE HCL PF), Dose: 0.5 mg IVP over 2 minute(s), Site: #1 right upper arm. Medication Ordered: Dilaudid IV 0.5 mg (HIGH ALERT MEDICATION, NOW).
--- NOTE | 2016-09-18 02:39 | ED MED RECONCILIATION SUMMARY ---
Patient: GENEVIEVE BUTTS Medication Reconciliation Report Located Within [facility] VisitID: [id number] [address] [place] [address] 46y, M Registration Date/Time: 09/16/2016 Weight: 83.9 kg Height/Length: 71 in. BMI: 25.8 ALLERGIES: Codeine, PCN The patient's Home Medications are listed below: NONE. The source(s) of the original Home Medication information: patient The following Medications were given to the patient in the Emergency Department: Toradol [IM] IM 60 mg, administered: 09/16/2016 1:00:00 PM Valium [IVP] IVP 5 mg, administered: 09/16/2016 2:14:00 PM IV NS IV Fluids bolus 0, then 1000 mL/hr, administered: 09/16/2016 2:14:00 PM Valium [IVP] IVP 5 mg, administered: 09/16/2016 2:34:00 PM Dilaudid [IVP] IVP 0.5 mg, administered: 09/16/2016 2:41:00 PM The following Medications were prescribed to the patient: Jenners 5 mg / 325 mg tablets: take 1 to 2 orally every 6 hours as needed for pain. Dispense fifteen (15). No refills. Substitution is permissible. -- Sebas Basurto MD
== END 2016-09-16 16:21 | disposition home or self-care (01) ==
LOC: ED SRH 12:20
DX: S42.142A Displaced fracture of glenoid cavity of scapula, left shoulder, initial encounter for closed fracture (principal); W11.XXXA Fall on and from ladder, initial encounter; Y93.9 Activity, unspecified; Y99.0 Civilian activity done for income or pay; Y92.9 Unspecified place or not applicable; Z88.0 Allergy status to penicillin; Z88.5 Allergy status to narcotic agent